=== PATIENT | male | born 1970 | race Two or more races ===

== ENCOUNTER 2020-10-15 06:45 | Day surgery (SDC) | payer OTHER ==
[~2020-10-15 06:45] MED LIST: BACTRIM DS TAB1 EACH PO
== END 2020-10-15 14:30 | disposition home or self-care (01) ==
LOC: AMB-ENDOS 06:45
PROVIDERS: ATTEND Surgery
DX: K62.89 Other specified diseases of anus and rectum (principal); Z20.828 Contact with and (suspected) exposure to other viral communicable diseases

== ENCOUNTER 2023-12-29 07:29 | Emergency (ER) | payer OTHER ==
[~2023-12-29] VITALS: Ht 160 cm; Wt 70.3 kg
[2023-12-29 08:41] LABS: HEMATOCRIT 41.3 % (39.0-48.0); HEMOGLOBIN 14.2 g/dL (13-16.00); MEAN CELL VOLUME 89.7 fL (80.0-100.00); MEAN CORPUSCULAR HEMOGLOBIN 30.9 pg (27.00-32.0); MEAN CORPUSCULAR HGB CONC 34.5 g/dl (32.0-36.0); PLATELET COUNT 254 K/uL (150-450); RED CELL DISTRIBUTION WIDTH 12.7 % (11.5-14.5)
[2023-12-29 08:44] LABS: ERYTHROCYTE SEDIMENTATION RATE 35 mm/hr
[2023-12-29 09:23] LABS: ALBUMIN 3.6 gm/dL (3.4-5.0); BILIRUBIN TOTAL 1.7 mg/dL (0.3-1.2); CREATININE SERUM 0.84 mg/dL (0.70-1.30); GFR 96.33; GLOBULINA 3.5 G/DL (2.4-3.5); POTASSIUM 3.77 mEq/L (3.5-5.1); TOTAL PROTEIN 7.1 gm/dL (6.4-8.2)
[2023-12-29 09:30] LABS: C-REACTIVE PROTEIN 9.53 MG/DL (0.00-0.29)
[2023-12-29 10:32] LABS: PH,URINE 6.5 (5.0-8.0); URINE APPEARANCE Clear; URINE BILIRRUBIN Negative (NEGATIVE); URINE BLOOD Small; URINE COLOR Yellow; URINE GLUCOSE Negative (NEGATIVE); URINE LEUKOCYTE Negative; URINE NITRATE Negative; URINE PROTEIN Trace (NEGATIVE)
[2023-12-29 10:36] LABS: URINE EPITHELIAL CELLS 1.5 uL (0.0-38.8); URINE RBC 31.4 uL (0.0-20.8); URINE WBC 3.2 uL (0.0-23.2)
[2023-12-29 10:47] LABS: URINE BACTERIA 3.7 uL (0.0-1933)
== END 2023-12-29 16:17 | disposition home or self-care (01) ==
LOC: ER 07:30
PROVIDERS: General Practice
DX: K61.1 Rectal abscess (principal); K62.89 Other specified diseases of anus and rectum; Z98.890 Other specified postprocedural states

== ENCOUNTER 2023-12-31 07:43 | Inpatient (IN) | payer OTHER ==
[~2023-12-31] VITALS: Ht 160 cm; Wt 70.3 kg
[2023-12-31] MEDS ORDERED: 0.9 % SODIUM CHLORIDE 1,000 ML IV STA (08:33)
[2023-12-31] MEDS ORDERED: MORPHINE SULFATE 4 MG/ML VIAL IV ONE (08:45)
[2023-12-31] MEDS ORDERED: PIPERACILLIN/TAZOBACTAM SODIUM 3.375 GM VIAL IV ONE (08:45)
[2023-12-31 09:20] LABS: HEMATOCRIT 39.6 % (39.0-48.0); HEMOGLOBIN 13.6 g/dL (13-16.00); MEAN CELL VOLUME 90.4 fL (80.0-100.00); MEAN CORPUSCULAR HEMOGLOBIN 31.1 pg (27.00-32.0); MEAN CORPUSCULAR HGB CONC 34.4 g/dl (32.0-36.0); PLATELET COUNT 260 K/uL (150-450); RED BLOOD COUNT 4.38 M/uL (4.00-6.00); RED CELL DISTRIBUTION WIDTH 12.4 % (11.5-14.5)
[2023-12-31 09:44] LABS: INR 1.11; PARTIAL THROMBOPLASTIN TIME 34.9 SECONDS (22.0-34.0); PROTHROMBIN TIME 11.6 SECONDS (9.0-11.5)
[2023-12-31 09:45] LABS: CALCIUM 8.9 mg/dL (8.5-10.1); CREATININE SERUM 0.97 mg/dL (0.70-1.30); GFR 81.59; POTASSIUM 3.45 mEq/L (3.5-5.1)
[2023-12-31] MEDS ORDERED: MORPHINE SULFATE 4 MG/ML CARTRIDGE IV PRN (12:00)
[2023-12-31] MEDS ORDERED: POTASSIUM BICARBONATE/CIT AC 25 MEQ TABLET.EFF PO ONE (12:00)
[2023-12-31] MEDS ORDERED: RINGERS SOLUTION,LACTATED 1,000 ML IV SCH (12:00)
[2023-12-31 13:24] LABS: PH,URINE 5.5 (5.0-8.0); URINE APPEARANCE Clear; URINE BILIRRUBIN Small (NEGATIVE); URINE BLOOD Trace; URINE COLOR Dark Yellow; URINE GLUCOSE Negative (NEGATIVE); URINE LEUKOCYTE Negative; URINE NITRATE Negative; URINE PROTEIN Trace (NEGATIVE)
[2023-12-31 13:28] LABS: URINE RBC 48.4 uL (0.0-20.8); URINE WBC 2.4 uL (0.0-23.2)
[2023-12-31 14:02] LABS: URINE BACTERIA 2.5 uL (0.0-1933); URINE EPITHELIAL CELLS 1.3 uL (0.0-38.8)
[2023-12-31] MEDS ORDERED: ACETAMINOPHEN 500 MG GEL..CAP PO PRN (15:30)
[2023-12-31] MEDS ORDERED: PIPERACILLIN/TAZOBACTAM SODIUM 3.375 GM in 0.9 % SODIUM CHLORIDE 100 ML IV SCH (18:00)
[2023-12-31] MEDS ORDERED: FAMOTIDINE/PF 20 MG/2 ML VIAL IV SCH (21:00)
[2024-01-01] MEDS ORDERED: MINERAL OIL 133 ML ENEMA RECTAL ONE (06:00)
[2024-01-01] MEDS ORDERED: BUPIVACAINE HCL/PF 0.5% 1ML IJ ONE (16:00)
[2024-01-01] MEDS ORDERED: DIBUCAINE 15 GM OINT..GM. TUBE RECTAL ONE (16:00)
[2024-01-01] MEDS ORDERED: LIDOCAINE HCL/EPINEPHRINE 20 ML VIAL IJ ONE (16:00)
[2024-01-01] MEDS ORDERED: HEMOSTATIC MATRIX 1 KIT KIT TOP ONE (16:00)
[2024-01-01] MEDS ORDERED: POVIDONE-IODINE 118 ML BOTT TOP ONE (16:00)
[2024-01-02] MEDS ORDERED: PIPERACILLIN/TAZOBACTAM SODIUM 3.375 GM VIAL IV ONE (00:26)
[2024-01-02 07:23] LABS: HEMATOCRIT 37.5 % (39.0-48.0); MEAN CELL VOLUME 91.1 fL (80.0-100.00); MEAN CORPUSCULAR HEMOGLOBIN 31.7 pg (27.00-32.0); MEAN CORPUSCULAR HGB CONC 34.7 g/dl (32.0-36.0); PLATELET COUNT 307 K/uL (150-450); RED BLOOD COUNT 4.12 M/uL (4.00-6.00); RED CELL DISTRIBUTION WIDTH 12.3 % (11.5-14.5)
[2024-01-02 07:41] LABS: ALBUMIN 2.7 gm/dL (3.4-5.0); BILIRUBIN TOTAL 0.57 mg/dL (0.3-1.2); CREATININE SERUM 0.91 mg/dL (0.70-1.30); GFR 87.83; GLOBULINA 3.5 G/DL (2.4-3.5); MAGNESIUM 2.2 mg/dL (1.8-2.4); POTASSIUM 4.48 mEq/L (3.5-5.1); TOTAL PROTEIN 6.2 gm/dL (6.4-8.2)
[2024-01-02] MEDS ORDERED: GABAPENTIN 300 MG CAPSULE PO STA (12:42)
[2024-01-02] MEDS ORDERED: TRAMADOL HCL 50 MG TABLET PO PRN (15:15)
[2024-01-02] MEDS ORDERED: GABAPENTIN 300 MG CAPSULE PO SCH (17:00)
[2024-01-04] MEDS ORDERED: DOCUSATE SODIUM 100MG CAP PO SCH (17:00)
[2024-01-05 07:14] LABS: HEMATOCRIT 40.1 % (39.0-48.0); HEMOGLOBIN 13.8 g/dL (13-16.00); MEAN CELL VOLUME 91.1 fL (80.0-100.00); MEAN CORPUSCULAR HEMOGLOBIN 31.3 pg (27.00-32.0); MEAN CORPUSCULAR HGB CONC 34.4 g/dl (32.0-36.0); PLATELET COUNT 414 K/uL (150-450); RED CELL DISTRIBUTION WIDTH 12.1 % (11.5-14.5)
[2024-01-05 07:28] LABS: ALBUMIN 3.1 gm/dL (3.4-5.0); BILIRUBIN TOTAL 0.24 mg/dL (0.3-1.2); CALCIUM 9.1 mg/dL (8.5-10.1); CREATININE SERUM 0.85 mg/dL (0.70-1.30); GFR 95.03; GLOBULINA 3.9 G/DL (2.4-3.5); MAGNESIUM 2.5 mg/dL (1.8-2.4); PHOSPHOROUS 4.3 mg/dL (2.5-4.9); POTASSIUM 4.89 mEq/L (3.5-5.1)
[2024-01-05] MEDS ORDERED: LOSARTAN POTASSIUM 25 MG TABLET PO SCH (10:31)
[2024-01-05] MEDS ORDERED: LOSARTAN POTASS25 MG PO (10:51)
[2024-01-05] MEDS ORDERED: INTESTINEX680 M1 PO (10:52)
[2024-01-05] MEDS ORDERED: PANTOPRAZOLE SO20 MG PO (10:52)
[2024-01-05] MEDS ORDERED: COLACE100 MG PO (10:52)
[2024-01-05] MEDS ORDERED: AMOX-CLAV 875-1 EAC1 PO (10:53)
[2024-01-05] MEDS ORDERED: TRAM1TAB98 PO (10:57)
[2024-01-06] MEDS ORDERED: LACTOBACILLUS ACIDOPHILUS 1 CAP CAP PO SCH (09:00)
== END 2024-01-05 13:53 | disposition home or self-care (01) | DRG 989 ==
LOC: ER 07:43 → SURG 12:47 → SEC-K 12:47 → SURG 15:08
PROVIDERS: Emergency Medicine; Surgery; ADMIT Internal Medicine; ATTEND Internal Medicine
PROC: 0J9B0ZZ Drainage of Perineum Subcutaneous Tissue and Fascia, Open Approach (ICD-10-PCS; 2024-01-01)
PROC: 0JQB0ZZ Repair Perineum Subcutaneous Tissue and Fascia, Open Approach (ICD-10-PCS; principal; 2024-01-01 15:15)
DX: K60.3 Anal fistula (principal); K62.89 Other specified diseases of anus and rectum; I10 Essential (primary) hypertension

== ENCOUNTER 2024-11-17 22:39 | Emergency (ER) | payer OTHER ==
[~2024-11-17] VITALS: Ht 160 cm; Wt 68.0 kg
[~2024-11-17 22:39] MED LIST changes: +AMOX-CLAV 875-1 EAC1 PO; +COLACE100 MG PO; +INTESTINEX680 M1 PO; +LOSARTAN POTASS25 MG PO; +PANTOPRAZOLE SO20 MG PO; +PERCOCET 5-3251 EACH PO; +TRAM1TAB98 PO
[2024-11-18] MEDS ORDERED: METOCLOPRAMIDE HCL 5 MG/ML VIAL IM STA (01:04)
[2024-11-18] MEDS ORDERED: THIAMINE HCL 100 MG/ML 2 ML VIAL IM STA (01:04)
[2024-11-18] MEDS ORDERED: 0.9 % SODIUM CHLORIDE 1,000 ML IV STA (01:05)
[2024-11-18] MEDS ORDERED: FAMOtidine 10 MG/ML (4ML VIAL) IV PUSH STA (01:06)
[2024-11-18] MEDS ORDERED: ONDANSETRON HCL 2 MG/ML VIAL IV STA (01:06)
[2024-11-18 02:11] LABS: ALBUMIN 4.4 gm/dL (3.4-5.0); BILIRUBIN TOTAL 1.89 mg/dL (0.3-1.2); CALCIUM 9.9 mg/dL (8.5-10.1); CREATININE SERUM 1.12 mg/dL (0.70-1.30); GFR 68.85; GLOBULINA 3.6 G/DL (2.4-3.5); POTASSIUM 3.67 mEq/L (3.5-5.1)
[2024-11-18 02:29] LABS: HEMATOCRIT 50.2 % (39.0-48.0); HEMOGLOBIN 17.6 g/dL (13-16.00); MEAN CELL VOLUME 92.5 fL (80.0-100.00); MEAN CORPUSCULAR HEMOGLOBIN 32.5 pg (27.00-32.0); MEAN CORPUSCULAR HGB CONC 35.1 g/dl (32.0-36.0); PLATELET COUNT 269 K/uL (150-450); RED BLOOD COUNT 5.43 M/uL (4.00-6.00); RED CELL DISTRIBUTION WIDTH 14.4 % (11.5-14.5)
== END 2024-11-18 04:26 | disposition home or self-care (01) ==
LOC: ER 22:41
DX: K29.70 Gastritis, unspecified, without bleeding (principal); J03.90 Acute tonsillitis, unspecified; R11.10 Vomiting, unspecified

== ENCOUNTER 2024-12-31 11:11 | Inpatient (IN) | payer OTHER ==
[~2024-12-31] VITALS: Ht 160 cm; Wt 70.3 kg
[2024-12-31] MEDS ORDERED: KETOROLAC TROMETHAMINE 60 MG VIAL IM ONE ×2 (12:30→12:42)
[2024-12-31 13:09] LABS: HEMATOCRIT 49.2 % (39.0-48.0); HEMOGLOBIN 16.9 g/dL (13-16.00); MEAN CELL VOLUME 93.1 fL (80.0-100.00); MEAN CORPUSCULAR HGB CONC 34.3 g/dl (32.0-36.0); PLATELET COUNT 300 K/uL (150-450); RED BLOOD COUNT 5.28 M/uL (4.00-6.00); RED CELL DISTRIBUTION WIDTH 12.5 % (11.5-14.5)
[2024-12-31] MEDS ORDERED: BARIUM SULFATE 450 ML ORAL.SUSP PO ONE (13:25)
[2024-12-31 13:29] LABS: ALBUMIN 3.9 gm/dL (3.4-5.0); BILIRUBIN TOTAL 2.13 mg/dL (0.3-1.2); CALCIUM 9.5 mg/dL (8.5-10.1); CREATININE SERUM 1.03 mg/dL (0.70-1.30); GFR 75.83; GLOBULINA 4.2 G/DL (2.4-3.5); POTASSIUM 3.68 mEq/L (3.5-5.1); TOTAL PROTEIN 8.1 gm/dL (6.4-8.2)
[2024-12-31 13:37] LABS: INR 1.09; PROTHROMBIN TIME 11.8 SECONDS (9.0-11.5)
[2024-12-31] MEDS ORDERED: FAMOtidine 10 MG/ML (4ML VIAL) IV ONE (15:45)
[2024-12-31] MEDS ORDERED: PIPERACILLIN/TAZOBACTAM SODIUM 3.375 GM VIAL IV ONE ×2 (15:45→15:46)
[2024-12-31] MEDS ORDERED: FAMOTIDINE/PF 20 MG/2 ML VIAL ONE (15:46)
[2024-12-31] MEDS ORDERED: PIPERACILLIN/TAZOBACTAM SODIUM 3.375 GM VIAL IV SCH (19:43)
[2024-12-31] MEDS ORDERED: MORPHINE SULFATE 4 MG/ML VIAL IV PRN (19:45)
[2024-12-31] MEDS ORDERED: 0.9 % SODIUM CHLORIDE 1,000 ML IV SCH (19:45)
[2024-12-31] MEDS ORDERED: ACETAMINOPHEN 500 MG GEL..CAP PO PRN (20:15)
[2024-12-31] MEDS ORDERED: FAMOTIDINE/PF 20 MG/2 ML VIAL IV SCH (21:00)
[2024-12-31 22:54] VITALS: BP 144/65; O2SAT 100
[2025-01-01 00:42] VITALS: BP 148/89; O2SAT 98
[2025-01-01 08:00] VITALS: BP 148/93; O2SAT 98
[2025-01-01 08:02] LABS: INR 1.14; PARTIAL THROMBOPLASTIN TIME 34.3 SECONDS (22.0-34.0); PROTHROMBIN TIME 12.3 SECONDS (9.0-11.5)
[2025-01-01 16:34] VITALS: BP 143/82; O2SAT 98
[2025-01-01] MEDS ORDERED: MORPHINE SULFATE 4 MG/ML CARTRIDGE IV PRN (17:15)
[2025-01-02 00:45] VITALS: BP 135/80; O2SAT 100
[2025-01-02 06:30] LABS: HEMATOCRIT 39.8 % (39.0-48.0); HEMOGLOBIN 13.9 g/dL (13-16.00); MEAN CELL VOLUME 93.8 fL (80.0-100.00); MEAN CORPUSCULAR HEMOGLOBIN 32.8 pg (27.00-32.0); MEAN CORPUSCULAR HGB CONC 34.9 g/dl (32.0-36.0); PLATELET COUNT 249 K/uL (150-450); RED BLOOD COUNT 4.25 M/uL (4.00-6.00); RED CELL DISTRIBUTION WIDTH 12.6 % (11.5-14.5)
[2025-01-02 13:14] VITALS: BP 134/94; O2SAT 100
[2025-01-02 16:00] VITALS: BP 137/79; O2SAT 96
[2025-01-03 02:08] VITALS: BP 144/90; O2SAT 96
[2025-01-03 08:00] VITALS: BP 145/83; O2SAT 100
[2025-01-03] MEDS ORDERED: NA PHOS,M-B/NA PHOS,DI-BA 1 BOTTLE ENEMA RECTAL NR (09:00)
[2025-01-03] MEDS ORDERED: PIPERACILLIN/TAZOBACTAM SODIUM 3.375 GM VIAL IV ONE (16:39)
[2025-01-03] MEDS ORDERED: DIBUCAINE 30 GM TUBE ONE (16:47)
[2025-01-03] MEDS ORDERED: LIDOCAINE HCL 1%/EPINEPHRINE 20ML VIAL IJ ONE (16:47)
[2025-01-03] MEDS ORDERED: BUPIVACAINE HCL/MPF 0.5% 30ML VIAL ONE (16:47)
[2025-01-03] MEDS ORDERED: HEMOSTATIC MATRIX 1 KIT KIT TOP ONE (16:47)
[2025-01-03] MEDS ORDERED: POVIDONE-IODINE 118 ML BOTT TOP ONE (16:47)
[2025-01-03] MEDS ORDERED: HYDROGEN PEROXIDE 473 ML BOTTLE TOP ONE (16:58)
[2025-01-03] MEDS ORDERED: MORPHINE SULFATE 4 MG/ML CARTRIDGE IV PRN (17:30)
[2025-01-03 20:41] VITALS: BP 174/87; O2SAT 99
[2025-01-04 06:26] LABS: HEMATOCRIT 40.9 % (39.0-48.0); MEAN CELL VOLUME 93.8 fL (80.0-100.00); MEAN CORPUSCULAR HEMOGLOBIN 32.2 pg (27.00-32.0); MEAN CORPUSCULAR HGB CONC 34.3 g/dl (32.0-36.0); PLATELET COUNT 290 K/uL (150-450); RED BLOOD COUNT 4.36 M/uL (4.00-6.00); RED CELL DISTRIBUTION WIDTH 12.2 % (11.5-14.5)
[2025-01-04 06:59] LABS: ALBUMIN 2.8 gm/dL (3.4-5.0); BILIRUBIN TOTAL 0.41 mg/dL (0.3-1.2); CALCIUM 8.5 mg/dL (8.5-10.1); CREATININE SERUM 0.76 mg/dL (0.70-1.30); GFR 107.7; GLOBULINA 3.1 G/DL (2.4-3.5); POTASSIUM 3.98 mEq/L (3.5-5.1); TOTAL PROTEIN 5.9 gm/dL (6.4-8.2)
[2025-01-04 08:00] VITALS: BP 153/90; O2SAT 98
== END 2025-01-04 11:37 | disposition home or self-care (01) | DRG 358 ==
LOC: ER 11:14 → SURH 20:12
PROVIDERS: General Practice; Surgery; ADMIT Student in an Organized Health Care Education/Training Program; ATTEND Student in an Organized Health Care Education/Training Program
PROC: BW21ZZZ Computerized Tomography (CT Scan) of Abdomen and Pelvis (ICD-10-PCS; 2024-12-31)
PROC: 0J9B0ZZ Drainage of Perineum Subcutaneous Tissue and Fascia, Open Approach (ICD-10-PCS; 2025-01-03)
PROC: 3E0T3BZ Introduction of Anesthetic Agent into Peripheral Nerves and Plexi, Percutaneous Approach (ICD-10-PCS; 2025-01-03)
PROC: 0JBB0ZZ Excision of Perineum Subcutaneous Tissue and Fascia, Open Approach (ICD-10-PCS; principal; 2025-01-03 14:00)
DX: K61.39 Other ischiorectal abscess (principal); L98.8 Other specified disorders of the skin and subcutaneous tissue; I10 Essential (primary) hypertension; Z87.891 Personal history of nicotine dependence

== ENCOUNTER 2025-10-18 12:58 | Emergency (ER) | payer OTHER ==
[~2025-10-18] VITALS: Ht 160 cm; Wt 70.3 kg
[2025-10-18] MEDS ORDERED: 0.9 % SODIUM CHLORIDE 500 ML IV ONE (14:45)
[2025-10-18] MEDS ORDERED: KETOROLAC TROMETHAMINE 30 MG VIAL IV ONE (14:45)
[2025-10-18] MEDS ORDERED: FAMOTIDINE/PF 20 MG/2 ML VIAL IV ONE (14:45)
[2025-10-18] MEDS ORDERED: KETOROLAC TROMETHAMINE 30 MG VIAL ONE (15:06)
[2025-10-18] MEDS ORDERED: FAMOTIDINE/PF 20 MG/2 ML VIAL ONE (15:06)
[2025-10-18 15:35] LABS: BASO % 0.9 % (0.1-1.2); EOS # 0.25 (0.04-0.54); EOS % 2.4 % (0.7-7.0); LYMPH # 1.29 (1.18-3.74); LYMPH % 12.5 % (19.3-53.1); MEAN PLATELET VOLUME 9.40 fl (9.4-12.4); MONO # 1.05 (0.24-0.82); MONO % 10.1 % (4.7-12.5); NEUT # 7.64 (1.56-6.13); NEUT % 73.7 % (34.0-71.1); RED CELL DISTRIBUTION WIDTH 11.5 % (11.6-14.4)
[2025-10-18 15:42] LABS: URINE APPEARANCE Clear; URINE BILIRRUBIN Negative (NEGATIVE); URINE COLOR Yellow; URINE GLUCOSE Negative (NEGATIVE); URINE KETONE Negative (NEGATIVE); URINE LEUKOCYTE Negative; URINE NITRATE Negative; URINE PROTEIN Negative (NEGATIVE); URINE UROBILINOGEN 1.0 E.U./dl
[2025-10-18 15:43] LABS: ERYTHROCYTE SEDIMENTATION RATE 15 mm/hr (0-20)
[2025-10-18] MEDS ORDERED: DIATRIZOATE MEGLUMINE, SODIUM 30 ML BOTTLE ONE (15:43)
[2025-10-18 15:46] LABS: URINE BACTERIA 5.9 uL (0.0-1933); URINE EPITHELIAL CELLS 3.6 uL (0.0-38.8); URINE RBC 31.3 uL (0.0-20.8); URINE WBC 4.7 uL (0.0-23.2)
[2025-10-18 16:03] LABS: INR 1.11
[2025-10-18 16:12] LABS: ALT/SGPT 17.0 U/L (12-78); AST/SGOT 10.0 U/L (15-37); BILIRUBIN TOTAL 0.99 mg/dL (0.3-1.2); BUN CREA RATIO 11.0 (7.0-25.0); CREATININE SERUM 0.96 mg/dL (0.70-1.30); GFR 81.93; GLOBULINA 3.3 G/DL (2.4-3.5); GLUCOSE FASTING 93.0 mg/dL (65-100); OSMOLALITY SERUM 275.0 MOSM/KG (275-295)
[2025-10-18 16:45] LABS: URINE BLOOD Trace; URINE CAST 0.14 uL (0.0-1.40)
[2025-10-18] MEDS ORDERED: PIPERACILLIN/TAZOBACTAM SODIUM 3.375 GM VIAL IV ONE ×2 (20:30→20:31)
[2025-10-18] MEDS ORDERED: MORPHINE SULFATE 4 MG/ML CARTRIDGE IV ONE (22:00)
== END 2025-10-18 23:47 | disposition designated cancer center or children's hospital (05) ==
LOC: ER 12:58
PROVIDERS: General Practice
DX: R10.20 Pelvic and perineal pain unspecified side (principal); K60.30 Anal fistula, unspecified